=== PATIENT | male | born 1960 | race Caucasian/White ===

== ENCOUNTER 2020-02-28 10:39 | Emergency (ER) | payer BC ==
[~2020-02-28] VITALS: Ht 182.9 cm; Wt 93.2 kg
[2020-02-28 10:44] VITALS: TEMP 98.2
[2020-02-28] MEDS ORDERED: ONE-A-DAY ESSE1 EACH PO (10:56)
[2020-02-28 11:15] LABS: BASO # 0.1 (0.0-0.2); EOS # 0.2 (0.0-0.7); EOS % 2.4 % (0-4.0); GRAN # 3.7 (1.4-6.5); GRAN % 59.5 % (42.2-75.2); HEMATOCRIT 44.1 % (42.0-52.0); HEMOGLOBIN 14.8 g/dl (13.5-18.0); LYMPH # 1.8 (1.2-3.4); LYMPH % 28.9 % (20.0-51.0); MEAN CELL VOLUME 89 fl (80.0-100.0); MEAN CORPUSCULAR HEMOGLOBIN 30 pg (27.0-31.0); MEAN CORPUSCULAR HGB CONC 34 g/dl (33.0-37.0); MEAN PLATELET VOLUME 10.2 fl (7.4-10.4); MONO # 0.5 (0.1-0.6); PLATELET COUNT 229 K/mm3 (130-400); RED BLOOD COUNT 4.96 M/mm3 (4.20-5.60); REDCELL DISTRIBUTION WIDTH-CV 13.1 % (11.5-14.5)
[2020-02-28 11:26] LABS: ALANINE AMINOTRANSFERASE 24 U/L (4-49); ALBUMIN 4.5 gm/dL (3.5-5.0); ALKALINE PHOSPHATASE 79 U/L (50-136); ANION GAP 7 mmol/L (7-16); AST,SGOT 28 U/L (15-37); BILIRUBIN,TOTAL 0.7 mg/dL (0.0-1.0); BLOOD UREA NITROGEN 13 mg/dL (9-20); CALCIUM 9.4 mg/dL (8.4-10.2); CARBON DIOXIDE 28 mmol/L (22-30); CHLORIDE 103 mmol/L (98-107); CREATININE, serum 0.97 (0.66-1.25); GLUCOSE 98 mg/dL (74-106); LIPASE 55 U/L (23-300); POTASSIUM 4.5 mmol/L (3.4-5.0); SODIUM 138 mmol/L (137-145)
[2020-02-28 11:53] LABS: TROPONIN-I < 0.012 ng/mL (0.000-0.035)
[2020-02-28 12:29] LABS: COLLECTION METHOD CLEAN CATCH
[2020-02-28 12:36] LABS: PH 7 (5-8); SQUAMOUS EPITHELIAL None Seen /hpf; URINE APPEARANCE Clear; URINE BACTERIA None Seen /hpf; URINE BILIRUBIN Negative (NEGATIVE); URINE BLOOD Negative (NEGATIVE); URINE COLOR Colorless; URINE GLUCOSE Negative (NEGATIVE); URINE KETONE Negative (NEGATIVE); URINE LEUKOCYTE ESTERASE Negative (NEGATIVE); URINE NITRATE Negative (NEGATIVE); URINE PROTEIN(semi-quant) Negative (NEGATIVE); URINE RBC None Seen /hpf; URINE UROBILINOGEN Negative (NEGATIVE)
[2020-02-28 13:35] VITALS: BP 132/85; PULSE 85
== END 2020-02-28 13:38 | disposition home or self-care (01) ==
LOC: COL.ER 10:39
PROVIDERS: Emergency Medicine
DX: R07.89 Other chest pain (principal)
CPT/HCPCS: J1885; J7030

== ENCOUNTER 2021-04-04 10:38 | Emergency (ER) | payer BC ==
[~2021-04-04] VITALS: Ht 182.9 cm; Wt 90.9 kg
[~2021-04-04 10:38] MED LIST: ASPIRIN E.C. 8181 MG PO; LIPITOR20 MG PO; ONE-A-DAY ESSE1 EACH PO; PROTONIX 40MG T40 MG PO
[2021-04-04 11:17] LABS: BASO # 0.1 (0.0-0.2); BASO % 0.7 % (0.0-2.0); EOS # 0.1 (0.0-0.7); EOS % 1.1 % (0-4.0); GRAN # 6.6 (1.4-6.5); GRAN % 73.3 % (42.2-75.2); HEMATOCRIT 45.6 % (42.0-52.0); HEMOGLOBIN 15.4 g/dl (13.5-18.0); LYMPH # 1.6 (1.2-3.4); LYMPH % 18.2 % (20.0-51.0); MEAN CELL VOLUME 87 fl (80.0-100.0); MEAN CORPUSCULAR HEMOGLOBIN 29 pg (27.0-31.0); MEAN CORPUSCULAR HGB CONC 34 g/dl (33.0-37.0); MEAN PLATELET VOLUME 10.4 fl (7.4-10.4); MONO # 0.6 (0.1-0.6); MONO % 6.5 % (1.7-9.3); PLATELET COUNT 246 K/mm3 (130-400); RED BLOOD COUNT 5.24 M/mm3 (4.20-5.60); REDCELL DISTRIBUTION WIDTH-CV 13.3 % (11.5-14.5)
[2021-04-04 11:19] LABS: INR 1.1 (0.8-3.0); PROTHROMBIN TIME 11.7 SECONDS (9.7-12.8)
[2021-04-04 11:34] LABS: ALANINE AMINOTRANSFERASE 76 U/L (4-49); ALBUMIN 4.7 gm/dL (3.5-5.0); ALKALINE PHOSPHATASE 87 U/L (50-136); ANION GAP 9 mmol/L (7-16); AST,SGOT 46 U/L (15-37); BILIRUBIN,TOTAL 0.8 mg/dL (0.0-1.0); BLOOD UREA NITROGEN 14 mg/dL (9-20); CALCIUM 9.3 mg/dL (8.4-10.2); CARBON DIOXIDE 25 mmol/L (22-30); CHLORIDE 104 mmol/L (98-107); CREATINE KINASE 73 U/L (55-170); CREATININE, serum 0.93 (0.66-1.25); GLUCOSE 128 mg/dL (74-106); LIPASE 63 U/L (23-300); POTASSIUM 4.2 mmol/L (3.4-5.0); SODIUM 138 mmol/L (137-145); TOTAL PROTEIN 8.2 gm/dL (6.4-8.2)
[2021-04-04 11:49] LABS: TROPONIN-I < 0.012 ng/mL (0.000-0.035)
[2021-04-04 16:27] VITALS: BP 108/72; PULSE 56
== END 2021-04-04 16:28 | disposition home or self-care (01) ==
LOC: COL.ER 10:38
PROVIDERS: Emergency Medicine
DX: R07.89 Other chest pain (principal); K21.9 Gastro-esophageal reflux disease without esophagitis; E78.00 Pure hypercholesterolemia, unspecified; Z79.899 Other long term (current) drug therapy

== ENCOUNTER 2021-04-05 12:12 | Observation (INO) | payer BC ==
[~2021-04-05] VITALS: Ht 182.9 cm; Wt 92.7 kg
[2021-04-05 12:41] LABS: BASO # 0.1 (0.0-0.2); BASO % 0.7 % (0.0-2.0); EOS # 0.1 (0.0-0.7); EOS % 0.7 % (0-4.0); GRAN # 5.4 (1.4-6.5); GRAN % 67.3 % (42.2-75.2); HEMATOCRIT 46.3 % (42.0-52.0); HEMOGLOBIN 15.5 g/dl (13.5-18.0); LYMPH # 1.9 (1.2-3.4); LYMPH % 23.2 % (20.0-51.0); MEAN CELL VOLUME 88 fl (80.0-100.0); MEAN CORPUSCULAR HEMOGLOBIN 29 pg (27.0-31.0); MEAN CORPUSCULAR HGB CONC 34 g/dl (33.0-37.0); MEAN PLATELET VOLUME 10.6 fl (7.4-10.4); MONO # 0.6 (0.1-0.6); MONO % 7.9 % (1.7-9.3); PLATELET COUNT 240 K/mm3 (130-400); RED BLOOD COUNT 5.28 M/mm3 (4.20-5.60); REDCELL DISTRIBUTION WIDTH-CV 13.4 % (11.5-14.5)
[2021-04-05 13:13] LABS: ALANINE AMINOTRANSFERASE 76 U/L (4-49); ALBUMIN 4.9 gm/dL (3.5-5.0); ALKALINE PHOSPHATASE 84 U/L (50-136); ANION GAP 13 mmol/L (7-16); AST,SGOT 49 U/L (15-37); BILIRUBIN,TOTAL 0.7 mg/dL (0.0-1.0); BLOOD UREA NITROGEN 12 mg/dL (9-20); CALCIUM 9.2 mg/dL (8.4-10.2); CARBON DIOXIDE 21 mmol/L (22-30); CHLORIDE 106 mmol/L (98-107); CREATINE KINASE 84 U/L (55-170); CREATININE, serum 0.85 (0.66-1.25); GLUCOSE 134 mg/dL (74-106); LIPASE 78 U/L (23-300); POTASSIUM 4.6 mmol/L (3.4-5.0); SODIUM 140 mmol/L (137-145); TOTAL PROTEIN 8.4 gm/dL (6.4-8.2)
[2021-04-05 13:14] LABS: C-REACTIVE PROTEIN < 0.5 mg/dL (0.0-0.9)
[2021-04-05 13:28] LABS: TROPONIN-I < 0.012 ng/mL (0.000-0.035)
[2021-04-05 16:09] VITALS: BP 147/94; PULSE 56; TEMP 98.9
--- NOTE | 2021-04-05 16:36 | NUR ---
PT ARRIVED ON FLOOR. SITTING IN CHAIR. IN ROOM. PT DENIES PAIN. PT IS ALERT/ORIENT X4, PLEASANT AND COOPERATIVE. NORMAL VITAL SIGN, WITH SLIGHTLY ELEVATED BP. PT STATED BPs HAVE BEEN RUNNING HIGHER YESTERDAY AND TODAY. NO NEEDS AT THIS TIME. [employer] CALLED IN. DR. DEL CID NOTIFIED. CALL KIM IN REACH.
[2021-04-05 16:56] LABS: PARTIAL THROMBOPLASTIN TIME 31.3 SECONDS (26.0-37.0)
--- NOTE | 2021-04-05 17:44 | NUR ---
PT CAME UP THIS AFTERNOON FROM ED. PT DENIES PAIN. PLEASANT AND COOPERATIVE. IN ROOM. CALL KIM IN REACH. PT HAS NO NEEDS AT THIS TIME.
--- NOTE | 2021-04-05 19:38 | NUR ---
Assessment complete. currently at bedside. Patient is alert and oriented with no complaints of chest pain. Heparin gtt infusing at 10 ml/hr with next Hepxa draw at 2300. No edema is noted. HR normal/regular and lung sounds clear. Comfort measures provided and call light within reach. Will continue to monitor.
[2021-04-05 19:49] VITALS: BP 127/76; PULSE 53; TEMP 99
[2021-04-05 23:44] VITALS: BP 104/61; PULSE 54; TEMP 98.8
[2021-04-06 03:58] VITALS: BP 108/68; PULSE 53; TEMP 98.5
[2021-04-06 06:53] LABS: HEMATOCRIT 42.6 % (42.0-52.0); HEMOGLOBIN 14.2 g/dl (13.5-18.0); MEAN CELL VOLUME 88 fl (80.0-100.0); MEAN CORPUSCULAR HEMOGLOBIN 29 pg (27.0-31.0); MEAN CORPUSCULAR HGB CONC 33 g/dl (33.0-37.0); MEAN PLATELET VOLUME 10.5 fl (7.4-10.4); PLATELET COUNT 226 K/mm3 (130-400); RED BLOOD COUNT 4.83 M/mm3 (4.20-5.60); REDCELL DISTRIBUTION WIDTH-CV 13.6 % (11.5-14.5)
--- NOTE | 2021-04-06 07:00 | NUR ---
Report with HENRI Ridley. Pt resting in bed, awake and alert, denies needs at this time. Heparin infusion per orders. Call light in reach.
[2021-04-06 07:18] LABS: ANION GAP 9 mmol/L (7-16); BLOOD UREA NITROGEN 17 mg/dL (9-20); CALCIUM 8.9 mg/dL (8.4-10.2); CARBON DIOXIDE 24 mmol/L (22-30); CHLORIDE 106 mmol/L (98-107); CHOLESTEROL 141 mg/dL (120-200); CHOLESTEROL RISK RATIO 4.5; GLUCOSE 97 mg/dL (74-106); HDL CHOLESTEROL 31 mg/dL; LDL CHOLESTEROL 82 mg/dL; POTASSIUM 4.1 mmol/L (3.4-5.0); SODIUM 139 mmol/L (137-145); TRIGLYCERIDE 138 mg/dL
[2021-04-06 07:27] LABS: TROPONIN-I < 0.012 ng/mL (0.000-0.035)
[2021-04-06 07:31] VITALS: BP 118/71; PULSE 55; TEMP 98.3
--- NOTE | 2021-04-06 07:44 | NUR ---
HepXa at 0.33 which meets goal, no change to current rate of 900 units/hour. Recheck in 6 hours.
--- NOTE | 2021-04-06 08:30 | NUR ---
Pt to cardiopulm for testing via WC. Heparin infusion on standby.
--- NOTE | 2021-04-06 09:30 | NUR ---
Pt back to room following testing. Heparin infusion restarted per orders.
--- NOTE | 2021-04-06 10:37 | NUR ---
TYLER met with patient at bedside along with his , Rubi ([phone]). Patient is fully independent and has no DME's or O@/DME needs. Patient and 's home is in [place]. Patient states he has a PCP, Dr. Rudy Moraes. No anticipated needs at time of discharge. Patient states his is designated DPOA. *D/C home with no needs
[2021-04-06] MEDS ORDERED: LIPITOR 80MG80 MG PO (12:21)
[2021-04-06 12:22] VITALS: BP 128/70; PULSE 59; TEMP 98.1
--- NOTE | 2021-04-06 12:45 | NUR ---
First visit from the rn production. No needs right now.
--- NOTE | 2021-04-06 14:45 | NUR ---
Discharge instructions reviewed with pt and pt's regarding change in medication and follow-up appointments. Pt and verbalize understanding. Pt discharged home, ambulates out of facility accompanied by this nurse and pt's .
== END 2021-04-06 14:49 | disposition home or self-care (01) ==
LOC: COL.ER 12:12 → MEDICAL 14:02
PROVIDERS: Emergency Medicine; Physician Assistant; ADMIT Family Medicine
DX: I20.0 Unstable angina (principal); E78.5 Hyperlipidemia, unspecified; R03.0 Elevated blood-pressure reading, without diagnosis of hypertension; R53.83 Other fatigue; K21.9 Gastro-esophageal reflux disease without esophagitis; Z79.899 Other long term (current) drug therapy; Z79.82 Long term (current) use of aspirin
CPT/HCPCS: 99232-AI; 99239; G0378; J1644